=== PATIENT | female | born 1995 | race Caucasian/White ===

== ENCOUNTER 2019-05-27 00:23 | Emergency (ER) | payer MEDICAID ==
[2019-05-27] MEDS ORDERED: PHENAZOPYRIDINE HCL 200 MG TABLET ONE (01:17)
[2019-05-27] MEDS ORDERED: PHENAZOPYRIDINE HCL 200 MG TABLET PO ONE (01:30)
[2019-05-27] MEDS ORDERED: NITROFURANTOIN/NITROFURAN MAC 100 MG CAPSULE PO ONE (02:00)
[2019-05-27] MEDS ORDERED: NITROFURANTOIN/NITROFURAN MAC 100 MG CAPSULE ONE (02:05)
== END 2019-05-27 02:13 | disposition home or self-care (01) ==
DX: N39.0 Urinary tract infection, site not specified (principal)